=== PATIENT | male | born 1990 | race Caucasian/White ===

== ENCOUNTER 2016-10-27 15:28 | Emergency (ER) | payer SELFPAY ==
[~2016-10-27] VITALS: Wt 70.0 kg
[2016-10-27 16:39] LABS: URINE BLOOD (Dip) POC Negative (NEGATIVE)
[2016-10-27] MEDS ORDERED: CEFTRIAXONE 250 MG INJ IM ONE (17:00)
[2016-10-27] MEDS ORDERED: LIDOCAINE 1% (MDV) 20 ML INJ SC ONE (17:00)
[2016-10-27] MEDS ORDERED: AZITHROMYCIN 250 MG TAB PO ONE (17:00)
--- NOTE | 2016-10-27 17:13 | ERD ---
ER Documentation Chief Complaint Date/Time DATE: 10/27/16 TIME: 17:12 Chief Complaint 3 DAYS PENIS BURNING NO DISCHARGE NOTED. NO DYSURIA NOTED. HPI This 26-year-old male complains of penile burning with urination for last 3 days. He denies discharge. He did have recent intercourse but was wearing a condom. Denies vomiting, shortness breath, fevers. Denies any rashes or blisters. ROS All systems reviewed and are negative except as per history of present illness. PMhx/Soc Medical and Surgical Hx: pt denies Medical Hx, pt denies Surgical Hx Hx Alcohol Use: No Hx Substance Use: No Hx Tobacco Use: No Physical Exam Vitals Vital Signs Date Time Temp Pulse Resp B/P Pulse Ox O2 Delivery O2 Flow Rate FiO2 10/27/16 15:38 98.6 101 22 138/72 98 Physical Exam Const: [] Head: Atraumatic Eyes: Normal Conjunctiva ENT: Normal External Ears, Nose and Mouth. Neck: Full range of motion..~ No meningismus. Resp: Clear to auscultation bilaterally Cardio: Regular rate and rhythm, no murmurs Abd: Soft, non tender, non distended. Normal bowel sounds. Testicles normal and no discharge, rashes on external genital exam Skin: No petechiae or rashes Back: No midline or flank tenderness Ext: No cyanosis, or edema Neur: Awake and alert Psych: Normal Mood and Affect Results 24 hrs Laboratory Tests Test 10/27/16 16:41 Bedside Urine Blood Negative Bedside Urine Glucose (UA) Negative Bedside Urine Ketones (LAB) Negative Bedside Urine Leukocyte Esterase (L Negative Bedside Urine Nitrite (LAB) Negative Bedside Urine Protein (LAB) Trace Bedside Urine pH (LAB) 6.0 Current Medications Medications (Trade) Dose Ordered Sig/Derrek Route PRN Reason Start Time Stop Time Status Last Admin Dose Admin Azithromycin (Zithromax) 1,000 mg ONCE ONCE PO 10/27/16 17:00 10/27/16 17:01 DC 10/27/16 16:40 Ceftriaxone Sodium (Rocephin) 250 mg ONCE ONCE IM 10/27/16 17:00 10/27/16 17:01 DC 10/27/16 16:41 Lidocaine (Xylocaine 1% (Mdv) 20 ml) 20 ml ONCE ONCE SC 10/27/16 17:00 10/27/16 17:01 DC 10/27/16 16:40 Procedures/MDM Urine is negative for signs of infection, blood, glucose. Urine was sent for gonorrhea chlamydia. Patient was given Rocephin 250 mg IM and Zithromax 1 g p.o. Patient has signs and symptoms of urethritis without additional complications. He will be discharged home with instructions to recheck for new or worsening symptoms or primary care doctor. The patient was stable with no new complaints during the ER course. Clinically, there is no current evidence to suggest meningitis, sepsis, acute abdomen, pneumonia, acute coronary syndrome , pulmonary embolism, or any other emergent condition appearing to require further evaluation or hospitalization. The patient should certainly return for any new or worsening symptoms per the aftercare instructions. They should otherwise follow-up with her primary care doctor for reevaluation this week. Departure Diagnosis: Primary Impression: Urethritis Condition: Stable Patient Instructions: Urethritis, Male (Infec Vs Inflam), Adult Additional Instructions: You have been treated for STD chlamydia and gonorrhea. Recheck for new or worsening symptoms or primary care doctor. AYO THOMAS MD Oct 27, 2016 17:13
== END 2016-10-27 17:23 | disposition home or self-care (01) ==
LOC: FTE 15:28
DX: N34.2 Other urethritis (principal)
CPT/HCPCS: 81003; 87591; 96372; 99284; J0696